=== PATIENT | male | born 1965 | race Two or more races ===

== ENCOUNTER → 2020-05-02 | Emergency (ER) | payer BC, OTHER ==
[~2020-05-02] VITALS: Ht 172.7 cm; Wt 79.8 kg
[~2020-05-02] MED LIST: CALCIUM CHL 100MG/ML 1,000 MG in D5W 5% 100 ML IV ONE; D5W/SOD CHLO 0.9% 1,000 ML IV ONE; DEXTROSE (50%) 50ML SYRG IV ONE; FUROSEMIDE 20 MG/2 ML VIAL IV ONE; FUROSEMIDE 40 MG/4 ML VIAL IV ONE; InsuLIN REG 1unit/0.01ml Soln (100units/ml) IV ONE; SODIUM BICARBONATE 8.4 % INJ 50ML VIAL IV ONE; SODIUM BICARBONATE 8.4% INJ 50ML SYRINGE IV ONE; SODIUM CHLORIDE 0.9% 500 ML IV ONE
[2020-05-02 15:15] LABS: Basophils # (auto) 0 10 ^3/uL (0-0.2); Basophils % (auto) 0.7 % (0.0-2.0); Eosinophils # (auto) 0.1 10 ^3/uL (0-0.8); Eosinophils % (auto) 2.3 % (0.0-7.0); Hematocrit 34.1 % (41.0-53.0); Hemoglobin 11.2 g/dL (13.5-17.5); Lymphocytes # (auto) 1.7 10 ^3/uL (0.4-5.4); Lymphocytes % (auto) 27.4 % (10.0-50.0); Mean Corpuscular Hemoglobin 32.6 pg (28.0-32.0); Mean Corpuscular Hgb Conc. 32.7 g/dL (32.0-36.0); Mean Corpuscular Volume 99.6 fL (80.0-100.0); Monocytes # (auto) 0.3 10 ^3/uL (0-1.3); Monocytes % (auto) 5.8 % (0.0-12.0); Neutrophils # (auto) 3.8 10 ^3/uL (1.6-8.6); Neutrophils % (auto) 63.8 % (37.0-80.0); Platelet Count (auto) 218 10^3/uL (140-450); Red Blood Cells 3.43 10^6/uL (4.5-5.90); Red Cell Distribution Width 13.8 % (11.8-14.3)
[2020-05-02 15:30] LABS: Albumin 2.9 g/dL (3.4-5.0); Calcium 8.2 mg/dL (8.5-10.1)
[2020-05-02 15:33] LABS: BUN/Creatinine Ratio 13.9; Bilirubin, Total 0.2 mg/dL (0.2-1.0); Total Protein 6.6 g/dL (6.4-8.2)
[2020-05-02 15:45] LABS: Potassium 6.6 mmol/L (3.5-5.1)
[2020-05-02 17:56] LABS: Urine Bacteria NONE SEEN /hpf (None Seen); Urine Blood Negative /uL (Negative); Urine WBC <1 /hpf (0 - 3)
[2020-05-02 23:15] LABS: Anion Gap 6 (5-15); BUN/Creatinine Ratio 14.8; GFR African American 25 mL/min; GFR Non-African American 21 mL/min; Potassium 5.5 mmol/L (3.5-5.1); Sodium 139 mmol/L (136-145)
[2020-05-02 23:16] LABS: Blood Urea Nitrogen 49 mg/dL (7-18); Calcium 8.2 mg/dL (8.5-10.1); Carbon Dioxide 23 mmol/L (21-32); Chloride 110 mmol/L (98-107); Glucose 178 mg/dL (74-106)
[2020-05-03 00:30] VITALS: BP 158/124
[2020-05-03 01:05] LABS: Calcium 8.8 mg/dL (8.5-10.1); Potassium 4.2 mmol/L (3.5-5.1)
== END | disposition home or self-care (01) ==
LOC: ER 14:33
DX: E11.22 Type 2 diabetes mellitus with diabetic chronic kidney disease (principal); I12.9 Hypertensive chronic kidney disease with stage 1 through stage 4 chronic kidney disease, or unspecified chronic kidney disease; N18.4 Chronic kidney disease, stage 4 (severe); E87.5 Hyperkalemia; E46 Unspecified protein-calorie malnutrition; E78.5 Hyperlipidemia, unspecified
CPT/HCPCS: 36415; 71046; 80048; 80053; 81001; 83735; 85025; 93005; 96365; 96375; 96376; 99285; J1815; J1940; J7040; J7042; J7060; 96361; 96374